=== PATIENT | female | born 1955 | race Caucasian/White ===

== ENCOUNTER 2016-11-09 12:48 | Day surgery (SDC) | payer OTHER ==
--- NOTE | ~2016-11-09 | EGD ---
EGD REPORT [facility] [address] [address] NAME: CHAPARRITA BLOUNT : 55 STATUS : [facility]#: [id number] AGE: 60 ADM/REG DATE : 11/09/16 MR#: [id number] REPORT SERV DATE: 12/20/16 DICTATED BY: BHAVIK GARCIA DATE: 12/20/16 REPORT STATUS : Draft [facility]: [facility] DATE: 12/20/16 Endoscopy Center Patient Name: Chaparrita Blount Date of : 1955 Attending MD: BHAVIK GARCIA MD Procedure Date No Time: 11/09/2016 Procedure: Upper GI endoscopy Indications: Dysphagia, Abnormal UGI series Referring MD: MARCIA PORTILLO Medicines: See the Anesthesia note for documentation of the administered medications Complications: No immediate complications. Procedure: Pre-Anesthesia Assessment: - ASA Grade Assessment: III - A patient with severe systemic disease. After obtaining informed consent, the endoscope was passed under direct vision. Throughout the procedure, the patient's blood pressure, pulse, and oxygen saturations were monitored continuously. The GIF H190 [id number] was introduced through the mouth, and advanced to the second part of duodenum. The upper GI endoscopy was accomplished without difficulty. The patient tolerated the procedure well. Findings: The examined duodenum was normal. Moderate inflammation was found in the gastric antrum. Biopsies were taken with a cold forceps for histology. A few small sessile polyps were found in the gastric fundus (on retroflexion). Biopsies were taken with a cold forceps for histology. A small hiatus hernia was present. A guidewire was placed and the scope was withdrawn. Dilation was performed with a Savary dilator with no resistance at 48 Fr. Impression: - Normal examined duodenum. - Gastritis. Biopsied. - A few gastric polyps. Biopsied. - Hiatus hernia. Dilated. Recommendation: - Patient has a contact number available for emergencies. The signs and symptoms of potential delayed complications were discussed with the patient. Return to normal activities tomorrow. Written discharge instructions were provided to the patient. - Clear liquid diet today. EGD REPORT [address] [address] NAME: CHAPARRITA BLOUNT : 55 STATUS : [facility] PAT#: [id number] AGE: 60 ADM/REG DATE : 11/09/16 MR#: [id number] REPORT SERV DATE: 12/20/16 DICTATED BY: BHAVIK GARCIA DATE: 12/20/16 REPORT STATUS : Draft TRANSCRIBED BY: [employer] DATE: 12/20/16 - Continue present medications. - Clear liquids today, soft diet tomorrow, regular diet the following day - Call office to schedule screening colonoscopy - FOR YOUR BIOPSY RESULTS: Please go to [email or web address] and register to receive your results via the portal. Your biopsy results will be posted there in about 7 to 10 days. IF you do not see result in 10 days, call office. Procedure Code(s): --- Professional --- 49349, Esophagogastroduodenoscopy, flexible, transoral; with insertion of guide wire followed by passage of dilator(s) through esophagus over guide wire 34850, Esophagogastroduodenoscopy, flexible, transoral; with biopsy, single or multiple Diagnosis Code(s): --- Professional --- K29.70, Gastritis, unspecified, without bleeding K31.7, Polyp of stomach and duodenum K44.9, Diaphragmatic hernia without obstruction or gangrene R13.10, Dysphagia, unspecified R93.3, Abnormal findings on diagnostic imaging of other parts of digestive tract CPT copyright 2013 [employer]. All rights reserved. The codes documented in this report are preliminary and upon hcc coders review may be revised to meet current compliance requirements. Bhavik Garcia MD BHAVIK GARCIA MD 11/09/2016 2:26 PM This report has been signed electronically. Number of Addenda: 0 Note Initiated On: 11/09/2016 2:10 PM Scope Withdrawal Time 0 hours 0 minutes 0 seconds [id number] [address]
--- NOTE | ~2016-11-09 | EGD ---
EGD REPORT [facility] [address] [address] NAME: CHAPARRITA BLOUNT : 55 STATUS : [facility]#: [id number] AGE: 60 ADM/REG DATE : 11/09/16 MR#: [id number] REPORT SERV DATE: 12/20/16 DICTATED BY: BHAVIK GARCIA DATE: 12/20/16 REPORT STATUS : Draft [facility] DATE: 12/20/16 Endoscopy Center Patient Name: Chaparrita Blount Date of : 1955 Attending MD: BHAVIK GARCIA MD Procedure Date No Time: 11/09/2016 Procedure: Upper GI endoscopy Indications: Dysphagia, Abnormal UGI series Referring MD: MARCIA PORTILLO Medicines: See the Anesthesia note for documentation of the administered medications Complications: No immediate complications. Procedure: Pre-Anesthesia Assessment: - ASA Grade Assessment: III - A patient with severe systemic disease. After obtaining informed consent, the endoscope was passed under direct vision. Throughout the procedure, the patient's blood pressure, pulse, and oxygen saturations were monitored continuously. The GIF H190 [id number] was introduced through the mouth, and advanced to the second part of duodenum. The upper GI endoscopy was accomplished without difficulty. The patient tolerated the procedure well. Findings: The examined duodenum was normal. Moderate inflammation was found in the gastric antrum. Biopsies were taken with a cold forceps for histology. A few small sessile polyps were found in the gastric fundus (on retroflexion). Biopsies were taken with a cold forceps for histology. A small hiatus hernia was present. A guidewire was placed and the scope was withdrawn. Dilation was performed with a Savary dilator with no resistance at 48 Fr. Impression: - Normal examined duodenum. - Gastritis. Biopsied. - A few gastric polyps. Biopsied. - Hiatus hernia. Dilated. Recommendation: - Patient has a contact number available for emergencies. The signs and symptoms of potential delayed complications were discussed with the patient. Return to normal activities tomorrow. Written discharge instructions were provided to the patient. - Clear liquid diet today. EGD REPORT [address] [address] NAME: CHAPARRITA BLOUNT : 55 STATUS : [facility] PAT#: [id number] AGE: 60 ADM/REG DATE : 11/09/16 MR#: [id number] REPORT SERV DATE: 12/20/16 DICTATED BY: BHAVIK GARCIA DATE: 12/20/16 REPORT STATUS : Draft TRANSCRIBED BY: [employer] [facility] DATE: 12/20/16 - Continue present medications. - Clear liquids today, soft diet tomorrow, regular diet the following day - Call office to schedule screening colonoscopy - FOR YOUR BIOPSY RESULTS: Please go to [email or web address] and register to receive your results via the portal. Your biopsy results will be posted there in about 7 to 10 days. IF you do not see result in 10 days, call office. Procedure Code(s): --- Professional --- 22356, Esophagogastroduodenoscopy, flexible, transoral; with insertion of guide wire followed by passage of dilator(s) through esophagus over guide wire 96510, Esophagogastroduodenoscopy, flexible, transoral; with biopsy, single or multiple Diagnosis Code(s): --- Professional --- K29.70, Gastritis, unspecified, without bleeding K31.7, Polyp of stomach and duodenum K44.9, Diaphragmatic hernia without obstruction or gangrene R13.10, Dysphagia, unspecified R93.3, Abnormal findings on diagnostic imaging of other parts of digestive tract CPT copyright 2013 [employer]. All rights reserved. The codes documented in this report are preliminary and upon [employer] operator review may be revised to meet current compliance requirements. Bhavik Garcia MD BHAVIK GARCIA MD 11/09/2016 2:26 PM This report has been signed electronically. Number of Addenda: 0 Note Initiated On: 11/09/2016 2:10 PM Scope Withdrawal Time 0 hours 0 minutes 0 seconds [id number] [address]
[~2016-11-09 12:48] MED LIST: AMB10 PO; CYMBALTA60 PO; FLEX PO; FUROSEMIDE PO; NEUR100 PO; NORCO1 TAB PO; PR25 PO; PRILO PO
== END 2016-11-09 23:59 | disposition home or self-care (01) ==
LOC: DMU 12:48
PROVIDERS: Internal Medicine Gastroenterology
PROC: 0DB68ZX Excision of Stomach, Via Natural or Artificial Opening Endoscopic, Diagnostic (ICD-10-PCS; principal; 2016-11-09 14:30)
PROC: 0D758ZZ Dilation of Esophagus, Via Natural or Artificial Opening Endoscopic (ICD-10-PCS; 2016-11-09 14:30)
DX: K31.7 Polyp of stomach and duodenum (principal); K29.70 Gastritis, unspecified, without bleeding; K44.9 Diaphragmatic hernia without obstruction or gangrene; R13.10 Dysphagia, unspecified; R93.3 Abnormal findings on diagnostic imaging of other parts of digestive tract